=== PATIENT | male | born 1950 | race Caucasian/White ===

== ENCOUNTER 2021-08-04 07:17 | Outpatient (RCR) | payer OTHER, SELFPAY ==
[2021-08-04 11:27] VITALS: BP 162/108; PULSE 88; RESP 20; TEMP 35.9; O2SAT 99
[2021-08-04] MEDS: FAMOTIDINE 20 MG TABLET PO (11:31)
[2021-08-04] MEDS: ACETAMINOPHEN 325 MG TABLET 650 MG PO (11:31)
[2021-08-04] MEDS: diphenhydrAMINE HCl CAP 25 MG CAPSULE PO (11:31)
[2021-08-04 13:12] VITALS: BP 152/94
== END 2021-08-04 17:00 ==
LOC: AMCINF 07:17
PROVIDERS: PCP Internal Medicine; Referring Provider Internal Medicine; Visit Provider Internal Medicine Hematology & Oncology
DX: U07.1 COVID-19 (principal)
CPT/HCPCS: A9270; M0247